=== PATIENT | female | born 1990 | race African-American/Black ===

== ENCOUNTER 2022-09-05 11:05 | Emergency (ER) | payer MEDICAID ==
[~2022-09-05] VITALS: Ht 160 cm; Wt 85.7 kg
[2022-09-05 11:37] VITALS: BP 126/77
[2022-09-05] MEDS ORDERED: KETOROLAC 30 MG/ML VIAL IM ONE (11:50)
--- NOTE | 2022-09-05 11:51 | NUR ---
Patient ambulated with steady gait to bed 3.
--- NOTE | 2022-09-05 12:06 | NUR ---
pt swabbed for covid(arik) and flu. walked to lab
[2022-09-05] MEDS ORDERED: IBUP-2213 PO (12:35)
[2022-09-05] MEDS ORDERED: NITR100C7 PO (12:35)
[2022-09-05] MEDS ORDERED: TAM75 PO (12:41)
[2022-09-05] MEDS ORDERED: ACET-10509 PO (12:41)
[2022-09-05 13:01] VITALS: BP 118/70
--- NOTE | 2022-09-05 13:02 | NUR ---
Patient discharged with v/s stable. Written and verbal after care instructions given and explained. Patient alert, oriented and verbalized understanding of instructions. Ambulatory with steady gait. All questions addressed prior to discharge. ID band removed. Patient advised to follow up with PMD. Rx of TAMIFLU, MOTRIN, MACROBID, TYLENOL given. Patient educated on indication of medication including possible reaction and side effects. Opportunity to ask questions provided and answered.
== END 2022-09-05 13:02 | disposition home or self-care (01) ==
LOC: MED 11:05
DX: J10.1 Influenza due to other identified influenza virus with other respiratory manifestations (principal); Z20.822 Contact with and (suspected) exposure to COVID-19; N39.0 Urinary tract infection, site not specified
CPT/HCPCS: 81002; 81025; 87426; 87804; 96372; 99283; J1885

== ENCOUNTER 2022-11-12 08:21 | Emergency (ER) | payer MEDICAID ==
[~2022-11-12] VITALS: Ht 162.6 cm; Wt 63.0 kg
[~2022-11-12 08:21] MED LIST: ACET-10509 PO; IBUP-2213 PO; NITR100C7 PO; TAM75 PO
[2022-11-12 08:29] VITALS: BP 136/62
[2022-11-12 09:15] LABS: APPEARANCE,URINE CLEAR (CLEAR); BILIRUBIN,URINE NEGATIVE (NEGATIVE); BLOOD, URINE TRACE-I (NEGATIVE); COLOR,URINE YELLOW (YELLOW); LEUKOCYTE ESTERASE ,URINE NEGATIVE (NEGATIVE); NITRITE, URINE NEGATIVE (NEGATIVE); UGLUCOSE NEGATIVE (NEGATIVE)
[2022-11-12 09:28] LABS: OTHER CASTS, URINE None Seen /LPF (None Seen); WBC,URINE 0-5 /HPF (0-5)
[2022-11-12] MEDS ORDERED: ONDANSETRON 4 MG ODT PO ONE (09:30)
[2022-11-12 09:50] LABS: BASOPHILS # (AUTO) 0.1 K/uL (0.00-0.22); BASOPHILS % (AUTO) 0.8 % (0.0-2.0); EOSINOPHILS # (AUTO) 0.1 K/uL (0-0.4); EOSINOPHILS % (AUTO) 0.7 % (0.0-4.0); HEMATOCRIT 41.3 % (36-48); HEMOGLOBIN 13.7 g/dL (12.0-16.0); LYMPHOCYTES # (AUTO) 1.5 K/uL (2.5-16.5); LYMPHOCYTES % (AUTO) 20.8 % (20.5-51.1); MEAN CORPUSCULAR HEMOGLOBIN 31 pg (27-31); MEAN CORPUSCULAR HGB CONC 33 g/dL (33-37); MEAN CORPUSCULAR VOLUME 91.7 fL (80-94); MONOCYTES # (AUTO) 0.4 K/uL (0.8-1.0); MONOCYTES % (AUTO) 5.8 % (1.7-9.3); NEUTROPHILS # (AUTO) 5.3 K/uL (1.8-7.7); NEUTROPHILS % (AUTO) 71.9 % (42.2-75.2); PLATELET COUNT (AUTO) 278 K/uL (140-450); RED BLOOD CELL COUNT(AUTO) 4.51 MIL/uL (4.20-5.40); RED CELL DISTRIBUTION WIDTH 12.4 % (11.6-13.7); WHITE BLOOD COUNT (AUTO) 7.4 K/uL (4.8-10.8)
[2022-11-12] MEDS ORDERED: ONDANSETRON 4 MG ODT ONE (10:33)
[2022-11-12] MEDS ORDERED: DOXY1TCP PO (11:15)
--- NOTE | 2022-11-12 11:20 | NUR ---
Patient discharged with v/s stable. Written and verbal after care instructions given and explained. Patient verbalized understanding. Ambulatory with steady gait. All questions addressed prior to discharge. Advised to follow up with PMD.
== END 2022-11-12 11:20 | disposition home or self-care (01) ==
LOC: MED 08:21
DX: O26.891 Other specified pregnancy related conditions, first trimester (principal); R10.9 Unspecified abdominal pain; N89.8 Other specified noninflammatory disorders of vagina; Z3A.01 Less than 8 weeks gestation of pregnancy; Z79.899 Other long term (current) drug therapy
CPT/HCPCS: 36415; 76817; 81001; 81025; 84702; 85025; 86900; 86901; 87086; 99284; Q0092; Q0162

== ENCOUNTER 2023-01-22 16:07 | Emergency (ER) | payer MEDICAID, OTHER ==
[~2023-01-22] VITALS: Ht 160 cm; Wt 86.2 kg
[~2023-01-22 16:07] MED LIST changes: +DOXY1TCP PO
[2023-01-22 16:12] VITALS: BP 137/90
--- NOTE | 2023-01-22 16:16 | NUR ---
bibs for lower abd pain 4/10 with vag bleed x 5 days. 16 weeks . denies vomit, dysuria, fever, chills, dizziness. aao x4. resp even and nonlabored. vss. ambualtory
--- NOTE | 2023-01-22 16:16 | NUR ---
PT AMBULATED TO ER BED 4
[2023-01-22 16:48] LABS: BASOPHILS # (AUTO) 0.1 K/uL (0.00-0.22); BASOPHILS % (AUTO) 1.2 % (0.0-2.0); EOSINOPHILS # (AUTO) 0.2 K/uL (0-0.4); EOSINOPHILS % (AUTO) 2.2 % (0.0-4.0); HEMATOCRIT 36.6 % (36-48); HEMOGLOBIN 12.3 g/dL (12.0-16.0); LYMPHOCYTES # (AUTO) 2.2 K/uL (2.5-16.5); MEAN CORPUSCULAR HEMOGLOBIN 31 pg (27-31); MEAN CORPUSCULAR HGB CONC 34 g/dL (33-37); MEAN CORPUSCULAR VOLUME 91.9 fL (80-94); MONOCYTES # (AUTO) 0.5 K/uL (0.8-1.0); MONOCYTES % (AUTO) 7.6 % (1.7-9.3); NEUTROPHILS # (AUTO) 4.1 K/uL (1.8-7.7); PLATELET COUNT (AUTO) 289 K/uL (140-450); RED BLOOD CELL COUNT(AUTO) 3.99 MIL/uL (4.20-5.40)
[2023-01-22 17:12] LABS: ALBUMIN 3.7 g/dL (3.4-5.0); ANION GAP 10.5 (8-16); CARBON DIOXIDE 26.8 mmol/L (21-32); CREATININE 0.9 mg/dL (0.6-1.3); POTASSIUM 3.3 mmol/L (3.5-5.1); TOTAL BILIRUBIN 0.4 mg/dL (0.0-1.0)
[2023-01-22 18:10] LABS: APPEARANCE,URINE CLEAR (CLEAR); BILIRUBIN,URINE NEGATIVE (NEGATIVE); BLOOD, URINE NEGATIVE (NEGATIVE); COLOR,URINE YELLOW (YELLOW); LEUKOCYTE ESTERASE ,URINE NEGATIVE (NEGATIVE); NITRITE, URINE NEGATIVE (NEGATIVE); UGLUCOSE NEGATIVE (NEGATIVE)
[2023-01-22 19:02] VITALS: BP 140/88
--- NOTE | 2023-01-22 19:02 | NUR ---
Patient discharged with v/s stable. Written and verbal after care instructions FOR MISCARRIAGE given and explained. Patient verbalized understanding. Ambulatory with steady gait. All questions addressed prior to discharge. Advised to follow up with PMD.
== END 2023-01-22 19:02 | disposition home or self-care (01) ==
LOC: MED 16:07
DX: O03.9 Complete or unspecified spontaneous abortion without complication (principal); Z79.899 Other long term (current) drug therapy
CPT/HCPCS: 36415; 76815; 80053; 81003; 84702; 85025; 86886; 86900; 86901; 87491; 99284; Q0092